=== PATIENT | female | born 1955 | race Caucasian/White ===

== ENCOUNTER → 2017-12-31 09:43 | Outpatient (CLI) | payer BC, SELFPAY ==
[2017-12-31 11:29] LABS: Anion Gap 8 (5-15); BUN 19 mg/dL (7-18); BUN/Creat Ratio 25.6 RATIO (10-20); Calcium,Total 8.9 mg/dL (8.5-10.1); Chloride 106 mmol/L (98-107); Creatinine, Serum 0.74 mg/dL (0.55-1.02); EST Glomerular Filtration Rate 84 mL/min (>60); Est Glom Filt Rate - Afr Amer 102 mL/min (>60); Glucose 118 mg/dL (74-106); Sodium Level 141 mmol/L (136-145)
[2017-12-31 11:35] LABS: Hemoglobin A1c 6.6 % (4.2-6.3)
== END ==
PROVIDERS: Family Provider Family Medicine; PCP Family Medicine; Visit Provider Family Medicine
DX: E11.9 Type 2 diabetes mellitus without complications (principal)
CPT/HCPCS: 36415; 80048; 83036

== ENCOUNTER → 2018-10-09 11:18 | Outpatient (CLI) | payer BC, SELFPAY ==
[2018-10-09 10:38] VITALS: BMI 36.6
[2018-10-09 13:13] LABS: Microalbumin,Random Urine 6.6 mg/L (NO RANGE EST.); Microalbumin:Creatinine Ratio 11.5 mg/g CRE (<30 mg/g CRE)
== END ==
PROVIDERS: Family Provider Family Medicine; PCP Family Medicine; Visit Provider Nurse Practitioner Family
DX: E11.9 Type 2 diabetes mellitus without complications (principal)
CPT/HCPCS: 36415; 82043; 82570; 83036

== ENCOUNTER → 2019-01-22 08:31 | Outpatient (CLI) | payer BC, SELFPAY ==
[2019-01-07 13:36] VITALS: BMI 38.7
[2019-01-22 12:49] LABS: ALB/GLOB Ratio 0.9 RATIO (0.9-2.4); AST(SGOT) 19 U/L (15-37); Alanine Aminotransfer ALT/SGPT 26 U/L (13-56); Albumin, Serum 3.5 g/dL (3.2-5.0); Alkaline Phosphatase 72 U/L (45-117); Anion Gap 7 (5-15); BUN 14 mg/dL (7-18); BUN/Creat Ratio 19.7 RATIO (10-20); Calcium,Total 8.9 mg/dL (8.5-10.1); Chloride 107 mmol/L (98-107); Cholesterol 176 mg/dL (200); Creatinine, Serum 0.71 mg/dL (0.55-1.02); EST Glomerular Filtration Rate 88 mL/min (>60); Est Glom Filt Rate - Afr Amer 107 mL/min (>60); Globulin 3.8 g/dL (2.2-4.2); Glucose 150 mg/dL (74-106); High Density Lipoprotein 57 mg/dL; Potassium 4.2 mmol/L (3.5-5.1); Protein, Total 7.3 g/dL (6.4-8.2); Sodium Level 140 mmol/L (136-145); Triglycerides 139 mg/dL; Very Low Density Lipoprotein 28 mg/dL (5-40)
== END ==
PROVIDERS: Family Provider Family Medicine; PCP Family Medicine; Visit Provider Family Medicine
DX: E11.9 Type 2 diabetes mellitus without complications (principal)
CPT/HCPCS: 36415; 80053; 80061

== ENCOUNTER 2019-08-02 23:39 | Emergency (ER) | payer BC, SELFPAY ==
[2019-07-07 14:03] VITALS: BMI 39.4
[2019-08-02 23:40] VITALS: BP 175/97; PULSE 100; RESP 16; TEMP 36.8; O2SAT 97; BMI 37.4
--- NOTE | 2019-08-02 23:45 | ED.RN ---
NO OLD EKGS IN MUSE
--- NOTE | 2019-08-03 00:07 | EKG12_ITS ---
Test Reason : PALPITTIONS Blood Pressure : / mmHG Vent. Rate : 092 BPM Atrial Rate : 092 BPM P-R Int : 152 ms QRS Dur : 092 ms QT Int : 374 ms P-R-T Axes : 042 006 044 degrees QTc Int : 462 ms Sinus rhythm with occasional Premature ventricular complexes Nonspecific ST and T wave abnormality Abnormal ECG Confirmed by TED MARTINEZ, TONYA ([id number]), editor city DM [place]FTON ([id number]) on 08/06/2019 8:50:11 AM Referred By: BB Confirmed By:TONYA JEAN MD
[2019-08-03 00:14] LABS: Absolute Lymphocyte Count 3.86 X10^3/uL (0.83-4.51); Absolute Neutrophil Count 3.4 X10^3/uL (2.0-7.7); Basophil# 0.07 X10^3/uL; Basophil% 0.9 % (0-1); Eosinophil# 0.31 X10^3/uL; Eosinophils% 3.8 % (0-5); Hematocrit 39.6 % (37-47); Hemoglobin 13.1 g/dL (12.0-15.0); Lymphocyte # 3.86 X10^3/ul (4.0); Lymphocyte % 47.5 % (19-41); Mean Corp Hgb Conc 33.1 g/dL (32-36); Mean Corpuscular Hgb 29.6 pg (27.0-32.0); Mean Corpuscular Volume 89.6 fL (81-99); Mean Platelet Vol. 10.1 fl (6.2-12.0); Monocyte# 0.52 X10^3/uL; Monocyte% 6.4 % (0-10); NRBC Flagged by Analyzer 0 % (0-5); Neutrophil # 3.36 X10^3/uL (2.7-7.7); Neutrophil % 41.3 % (47-70); Platelet Count 233 K/mm3 (150-450); RBC Distribution Width SD 39.3 fl (35.1-43.9); Red Blood Count 4.42 M/mm3 (4.2-5.4); White Blood Count 8.1 K/mm3 (4.4-11.0)
--- NOTE | 2019-08-03 00:39 | ED.VIS.GEN ---
History of Present Illness Chief Complaint: Palpitations Informant: Patient Onset: Hours - 1 hour prior to arrival Context: Sudden Onset - Woke her up from sleep Timing: Continuous - And gradually resolved, thinks it lasted almost an hour Quality: Racing and beating hard Location: chest Current Severity: Gone Maximum Severity: Severe Worsened by: nothing Relieved by: nothing in particular Associated Symptoms: lightheadedness Narrative: Patient had no associated chest discomfort or shortness of breath. She has no recent illnesses. She started using CBD oils for some pains in her right lower and right upper extremities, and about 3 hours prior to the onset of symptoms, she used them on her tongue for the third time ever. Other than that, no [id number]-[id number] medications or changes in prescriptions recently. She has been compliant with her prescriptions. She does not drink any caffeine or take any other stimulants. - Past Medical History (1) Hypertension Status: Chronic (2) Diabetes Status: Chronic Past Medical History - Allergies and Home Meds Allergies/Adverse Reactions: Allergies No Known Allergies Allergy (Verified 07/07/19 14:02) Primary Care Physician: Roni Kendrick DO [Primary Care Provider] - Lives: Spouse/ Significant Other Smoking Status: Never smoker Drugs: None Review of Systems General: Denies: Chills, Fever, Sweats Eyes: Denies: Visual changes - bilaterally, Diplopia ENT: Denies: Rhinorrhea, Sore throat Cardiovascular: Reports: Palpitations, Heart racing. Denies: Chest pain Respiratory: Denies: Dyspnea, Cough, Dyspnea on exertion Gastrointestinal: Denies: Abdominal pain, Nausea, Vomiting, Diarrhea, Melena, Hematochezia Genitourinary: Denies: Dysuria, Hematuria, Frequency Musculoskeletal: Denies: Back pain, Extremity Pain Skin: Denies: Rash, Wounds Neurological: Denies: Headache, Weakness, Numbness Physical Exam Vital Signs/Narrative: Vital Signs Temp Pulse Resp BP Pulse Ox 08/02/19 23:40 98.3 F 100 16 175/97 H 97 Inital Vital Signs reviewed: Yes General: Well nourished, Well developed, No Acute Distress Head: Normocephalic, Atraumatic Eyes: Perrl, EOMI ENT: Moist mucous membranes, No rhinorrhea Neck: Supple, Nontender, No lymphadenopathy, No JVD Cardiovascular: Regular rate, Regular rhythm, No murmurs, Normal S1, Normal S2 Respiratory: No distress, CTA bilaterally, Chest nontender Abdomen: Soft, Nontender, Nondistended, Normal bowel sounds Back: Nontender, Normal Inspection Extremities: Nontender, No edema. Negative for: Calf Tenderness Skin: Normal color, No rash, No Trauma Neurological: Alert, Oriented x3, Cranial nerves II-XII grossly intact, Normal Strength, Normal Sensation, Normal Gait Psychological: Normal affect, Normal Mood Diagnostic/Tx/Re-eval Laboratory Tests 08/03/19 08/03/19 08/03/19 Range/Units 00:46 00:00 00:00 WBC 8.1 (4.4-11.0) K/mm3 RBC 4.42 (4.2-5.4) M/mm3 Hgb 13.1 (12.0-15.0) g/dL Hct 39.6 (37-47) % MCV 89.6 (81-99) fL MCH 29.6 (27.0-32.0) pg MCHC 33.1 (32-36) g/dL RDW Std Deviation 39.3 (35.1-43.9) fl RDW Coeff of Kerri 12.0 (11.6-14.6) % Plt Count 233 (150-450) K/mm3 MPV 10.1 (6.2-12.0) fl Immature Gran % (Auto) 0.100 (0.0-0.9) % Neut % (Auto) 41.3 L (47-70) % Lymph % (Auto) 47.5 H (19-41) % Faulkner % (Auto) 6.4 (0-10) % Eos % (Auto) 3.8 (0-5) % Baso % (Auto) 0.9 (0-1) % Absolute Neuts (auto) 3.4 (2.0-7.7) X10^3/uL Absolute Lymphs (auto) 3.86 (0.83-4.51) X10^3/uL Nucleated RBC % 0 (0-5) % Sodium 141 Cancelled Potassium 3.5 Cancelled Chloride 110 H Cancelled Carbon Dioxide 27.0 Cancelled Anion Gap 4 L Cancelled BUN 15 Cancelled Creatinine 0.83 Cancelled Estim Creat Clear Calc 60.69 Cancelled Est GFR (MDRD) Af Amer 90 Cancelled Est GFR (MDRD) Non-Af 74 Cancelled BUN/Creatinine Ratio 18.1 Cancelled Glucose 172 H Cancelled Calcium 8.5 Cancelled Troponin I < 0.015 Cancelled - Rhythm Strip Rhythm Strip: Sinus Rhythm Rate: 92 Ectopy: PVC(s) - frequent, asymptomatic - EKG Initial EKG Interpretation: Sinus Rhythm, No Acute Injury Pattern, - - PVC Prior: No Prior - Medical Decision Making Patient remained asymptomatic for over 3 hours in the emergency department. Her work-up is unremarkable. Her EKG is normal except for some PVCs which she continues to occasionally have and not feel. I think she is at low risk relatively for adverse myocardial event and is stable for outpatient cardiology follow-up. At this time I would recommend avoiding the CBD oil. She is welcome to return for reevaluation for any recurrent symptoms before she is able to follow-up. An event or Holter monitor may be appropriate for her. I think she can follow-up for that. ED Disposition - Plan for ED Patient: Disposition: Home or Assisted Living Diagnosis: Palpitations Instructions: Palpitations Referrals: Roni Kendrick DO [Primary Care Provider] - Neal Guerin MD [STAFF PHYSICIAN] - As soon as possible (Call for appointment to be seen with any of the available physicians)
[2019-08-03 01:17] LABS: Anion Gap 4 (5-15); BUN 15 mg/dL (7-18); BUN/Creat Ratio 18.1 RATIO (10-20); Calcium,Total 8.5 mg/dL (8.5-10.1); Chloride 110 mmol/L (98-107); Creatinine, Serum 0.83 mg/dL (0.55-1.02); EST Glomerular Filtration Rate 74 mL/min (>60); Est Glom Filt Rate - Afr Amer 90 mL/min (>60); Estimated Creatinine Clearance 60.69 ml/min; Glucose 172 mg/dL (74-106); Potassium 3.5 mmol/L (3.5-5.1); Sodium Level 141 mmol/L (136-145)
[2019-08-03 01:39] VITALS: BP 158/76; PULSE 56; RESP 16; O2SAT 95
[2019-08-03 03:09] VITALS: BP 140/59; PULSE 64; RESP 16; O2SAT 98
== END 2019-08-03 03:10 | disposition home or self-care (01) ==
PROVIDERS: Emergency Provider Emergency Medicine; Family Provider Family Medicine; PCP Family Medicine
DX: R00.2 Palpitations (principal); I10 Essential (primary) hypertension; E11.9 Type 2 diabetes mellitus without complications; Z79.84 Long term (current) use of oral hypoglycemic drugs; Z79.82 Long term (current) use of aspirin; Z79.899 Other long term (current) drug therapy
CPT/HCPCS: 36415; 80048; 84484; 85025; 93005; 99284; A4216

== ENCOUNTER → 2020-03-10 14:36 | Outpatient (CLI) | payer BC, SELFPAY ==
[2020-03-09 15:37] VITALS: BMI 37.4
--- NOTE | 2020-03-10 14:45 | RAD_ITS ---
STUDY: X-RAY - LEFT KNEE REASON FOR EXAM: Female, 64 years old. PAIN TECHNIQUE: 4 view(s) of the knee. COMPARISON: None. FINDINGS: Normal visualized distal femur. Normal visualized proximal tibia and fibula. Normal proximal tibiofibular articulation. Normal medial femorotibial compartment. Normal lateral femorotibial compartment. Normal patellofemoral articulation. The soft tissue structures are unremarkable. RAD/Knee 4 or More Views IMPRESSION: Normal x-ray examination of the knee. Electronically Signed: Gene Turk MD at 20:34 EDT , Service support ,
== END ==
PROVIDERS: PCP Family Medicine; Referring Provider Nurse Practitioner Family; Visit Provider Nurse Practitioner Family
DX: M25.562 Pain in left knee (principal)
CPT/HCPCS: 73564

== ENCOUNTER → 2020-04-15 15:25 | Outpatient (CLI) | payer BC, SELFPAY ==
[2020-04-06 08:08] VITALS: BMI 37.4
--- NOTE | 2020-04-15 15:26 | MRI_ITS ---
STUDY: MRI LEFT KNEE REASON FOR EXAM: Female, 64 years old. Knee pain TECHNIQUE: Standardized fat and water weighted pulse sequences were obtained in all 3 orthogonal planes. COMPARISON: 03/10/2020 FINDINGS: Complex tear of the posterior horn the medial meniscus with a 1 cm trizonal radial tear of the root of the posterior horn and 1 cm trizonal flap tear of the medial aspect of the posterior horn extending to the inferior surface. There is diffuse, greater than 50% thickness articular cartilage loss of the medial femorotibial compartment. Normal medial femoral condyle and tibial plateau. Normal medial collateral ligamentous complex (MCL). Normal distal semimembranosus, gracilis and semitendinosus tendons. Normal lateral meniscus. Normal hyaline cartilage of the lateral femorotibial compartment. Mild stress reaction of the medial aspect of the lateral femoral condyle near the insertion of the anterior cruciate ligament. Normal proximal tibiofibular articulation. Normal lateral collateral (fibular) ligament. Normal popliteus tendon. Normal biceps femoris tendon. Normal anterior cruciate ligament (ACL). Normal posterior cruciate ligament (PCL). Shallow trochlear groove with lateral subluxation of patella and edema superolateral Hoffa''s fat pad consistent with patellofemoral maltracking. Normal hyaline cartilage of the patellofemoral compartment. Normal medial and lateral patellar retinaculum. Normal quadriceps tendon. Normal patellar tendon. Normal Hoffa''s fat pad. There is a moderate volume joint effusion. There is a Doyle''s cyst. The soft tissues are unremarkable. The otherwise visualized osseous structures are unremarkable. MRI/Lower Ext Joint Only (Routine) IMPRESSION: 1. Complex tear of the posterior horn the medial meniscus with moderate chondromalacia. 2. Mild stress reaction of the medial aspect lateral tibial plateau near the insertion of the anterior cruciate ligament. The anterior cruciate ligament is intact. 3. Patellofemoral maltracking. 4. Moderate joint effusion with a tiny Doyle''s cyst. Electronically Signed: Tereso Rodriguez MD at 16:54 EDT Tel , Service support ,
== END ==
PROVIDERS: PCP Family Medicine; Referring Provider Orthopaedic Surgery; Visit Provider Orthopaedic Surgery
DX: M23.307 Other meniscus derangements, unspecified meniscus, left knee (principal)
CPT/HCPCS: 73721

== ENCOUNTER 2020-05-10 08:11 | Day surgery (SDC) | payer BC, SELFPAY ==
[2020-04-22 08:07] VITALS: BMI 37.4
--- NOTE | 2020-04-22 11:37 | HP_ITS ---
Intake Intake Visit Reasons: LEFT KNEE Chief Complaint: KNEE PAIN Accompanied by: self Is patient in pain?: Yes Allergies No Known Allergies Allergy (Verified 04/06/20 14:51) Medications aspirin 81 mg tablet,delayed release See Rx Instructions .ROUTE .COMPLEX #30 tab 11/04/19 [Rx Confirmed 04/22/20] lisinopril 10 mg tablet See Rx Instructions .ROUTE .COMPLEX #30 tab 11/05/19 [Rx Confirmed 04/22/20] metformin 500 mg tablet See Rx Instructions .ROUTE .COMPLEX #180 tab 03/09/20 [Rx Confirmed 04/22/20] [facility] Social History (Updated 04/25/20 @ 11:[address] Zak Davidson, ) Smoking Status: Never smoker alcohol intake: never substance use type: does not use what type of physical activity do you participate in: other details: Active at job HPI LEFT KNEE: Surgical H&P: Yes Details: Parts of this documentation were recorded by a scribe, this documentation accurately reflects the service provided and the decisions made by me, Dr. Zak Davidson DO 04/22/20 0802. SHERLY JAIN is a 64 year old F here today for F/U on left knee pain after having MRI fo the left knee completed. Contineus to have left generalized knee pain. Does have painful popping and clicking. Denies numbness, tingling or other associated symptoms. Denies any radiating leg pain. Her knee has given out on her. Denies any hx of blood clots. ROS Musc Reports system reviewed and no additional complaints, except as docu, Reports abnormal walking, Reports joint pain, Reports joint swelling, Denies muscle cramps, Reports muscle weakness, Denies numbness, Reports radiating pain into limb, Reports stiffness, Denies tingling Skin/Breast Reports system reviewed and no additional complaints, except as docu, Denies dry skin, Denies redness, Denies lesions, Denies non-healing lesions, Denies itching, Denies rash, Denies skin ulcer, Denies sores, Denies wounds Neuro Yes abnormal walking, No numbness, No tingling Ortho Exam Left Knee Skin/Wound: No wound care, No ecchymosis, No erythema KNEE: No joint effusion. Left Knee Skin/Wound: Yes CDI, No ecchymosis, No erythema, No swelling Knee ROM: Yes ROM-Extension -20 to 0, Yes ROM-Flexion 0-140 (110) Examination: No med jt line tenderness, Yes Lat jt line tenderness, Yes Crepitus, Yes Karen's Test (click with lateral), No TTP Pes Anserine, No ITB tenderness Stability: NML: Anterior Drawer, NML: Posterior Drawer, NML: Valgus 30, NML: Varus 30, 2+: Pollo Patella Translation: 1 Patella Grind: No KNEE: no patellar instability antalgic gait Supplemental Info 04/15/2020 MRI left knee: Complex tear posterior horn medial meniscus'sStress reaction medial aspect of lateral tibial plateau patellofemoral maltracking moderate joint effusion 03/10/2020 x-ray left knee preserved joint space no significant sclerosis no acute findings there is mild spurring of the tibial eminence Assessment & Plan Problems 1. Acute medial meniscus tear of left knee, subsequent encounter S83.242D 2. Bone bruise T14.8XXA Plan Patient educated that she has a posterior medial meniscus tear. Patient educated that the treatment options are do nothing or PT or surgical intervention with a partial medial meniscectomy vs meniscus repair. We will plan the meniscectomy of the left knee. Reviewed the pre-operative plans with the patient. Risks and benefits of the procedure were fully explained, including but not limited to infection, neurovascular injury, continued pain, arthritis, stiffness, need for further surgery, re-injury, DVT, PE, general risks of anesthesia, and loss of limb or life. The patient understands all the risks and does wish to proceed with written consent. Educated that she may be sore and swollen for about 4 weeks post op. She will be able to WBAT. She also has mal patellar tracking which can be resolved by strengthening of the VMO and quads. She may need PT after the surgery for the maltracking. Follow up 2 weeks post op or sooner if pain, swelling, numbness or associated symptoms, or concerns develop. All questions answered. Patient in agreement of plan. Coding Level of Care Code Off vis,est,level 3 Diagnoses Acute medial meniscus tear of left knee, subsequent encounter S83.242D ??Encounter type: subsequent encounter Bone bruise T14.8XXA 04/25/20 1136 <Electronically signed by Zak Borrus o DO> Date _ Zak Davidson DO
--- NOTE | 2020-05-09 15:14 | HP.PCM_ITS ---
History and Physical Date of Admission: 05/10/20 Intake Intake Visit Reasons: LEFT KNEE Chief Complaint: KNEE PAIN Accompanied by: self Is patient in pain?: Yes Allergies No Known Allergies Allergy (Verified 04/06/20 14:51) Medications aspirin 81 mg tablet,delayed release See Rx Instructions .ROUTE .COMPLEX #30 tab 11/04/19 [Rx Confirmed 04/22/20] lisinopril 10 mg tablet See Rx Instructions .ROUTE .COMPLEX #30 tab 11/05/19 [Rx Confirmed 04/22/20] metformin 500 mg tablet See Rx Instructions .ROUTE .COMPLEX #180 tab 03/09/20 [Rx Confirmed 04/22/20] PFSH Social History (Updated 04/25/20 @ 11:[address] Zak Davidson DO) Smoking Status: Never smoker alcohol intake: never substance use type: does not use what type of physical activity do you participate in: other details: Active at job HPI LEFT KNEE: Surgical H&P: Yes Details: Parts of this documentation were recorded by a scribe, this documentation accurately reflects the service provided and the decisions made by me, Dr. Zak Davidson DO 04/22/20 0802. SHERLY JAIN is a 64 year old F here today for F/U on left knee pain after having MRI fo the left knee completed. Contineus to have left generalized knee pain. Does have painful popping and clicking. Denies numbness, tingling or other associated symptoms. Denies any radiating leg pain. Her knee has given out on her. Denies any hx of blood clots. ROS Musc Reports system reviewed and no additional complaints, except as docu, Reports abnormal walking, Reports joint pain, Reports joint swelling, Denies muscle cramps, Reports muscle weakness, Denies numbness, Reports radiating pain into limb, Reports stiffness, Denies tingling Skin/Breast Reports system reviewed and no additional complaints, except as docu, Denies dry skin, Denies redness, Denies lesions, Denies non-healing lesions, Denies itching, Denies rash, Denies skin ulcer, Denies sores, Denies wounds Neuro Yes abnormal walking, No numbness, No tingling Ortho Exam Left Knee Skin/Wound: No wound care, No ecchymosis, No erythema KNEE: No joint effusion. Left Knee Skin/Wound: Yes CDI, No ecchymosis, No erythema, No swelling Knee ROM: Yes ROM-Extension -20 to 0, Yes ROM-Flexion 0-140 (110) Examination: No med jt line tenderness, Yes Lat jt line tenderness, Yes Crepitus, Yes Karen's Test (click with lateral), No TTP Pes Anserine, No ITB tenderness Stability: NML: Anterior Drawer, NML: Posterior Drawer, NML: Valgus 30, NML: Va leonardo 30, 2+: Pollo Patella Translation: 1 Patella Grind: No KNEE: no patellar instability antalgic gait Supplemental Info 04/15/2020 MRI left knee: Complex tear posterior horn medial meniscus'sStress reaction medial aspect of lateral tibial plateau patellofemoral maltracking moderate joint effusion 03/10/2020 x-ray left knee preserved joint space no significant sclerosis no acute findings there is mild spurring of the tibial eminence Assessment & Plan Problems 1. Acute medial meniscus tear of left knee, subsequent encounter S83.242D 2. Bone bruise T14.8XXA Plan Patient educated that she has a posterior medial meniscus tear. Patient educated that the treatment options are do nothing or PT or surgical intervention with a partial medial meniscectomy vs meniscus repair. We will plan the meniscectomy of the left knee. Reviewed the pre-operative plans with the patient. Risks and benefits of the procedure were fully explained, including but not limited to infection, neurovascular injury, continued pain, arthritis, stiffness, need for further surgery, re-injury, DVT, PE, general risks of anesthesia, and loss of limb or life. The patient understands all the risks and does wish to proceed with written consent. Educated that she may be sore and swollen for about 4 weeks post op. She will be able to WBAT. She also has mal patellar tracking which can be resolved by strengthening of the VMO and quads. She may need PT after the surgery for the maltracking. Follow up 2 weeks post op or sooner if pain, swelling, numbness or associated symptoms, or concerns develop. All questions answered. Patient in agreement of plan. Coding Level of Care Code Off vis,est,level 3 Diagnoses Acute medial meniscus tear of left knee, subsequent encounter S83.242D ??Encounter type: subsequent encounter Bone bruise T14.8XXA I have re-examined the patient. There are no clinical changes since date of exam Procedure Criteria Procedure Type: Elective COVID Risk Discussion: The surgeon/proceduralist and patient have discussed in detail the risk of exposure to and/or potential harm posed by the COVID-19 virus with having a surgery/procedure at this time versus the risk of delaying the surgery/procedure. It is not possible to know either the risk of delaying the surgery or procedure or chance of getting an infection with perfect accuracy, but a joint decision was made between the patient and the surgeon/proceduralist to proceed at this time with the scheduled surgery/procedure as indicated on the consent form.
[2020-05-10] VITALS (8 sets, daily range): BP systolic 120–165; BP diastolic 49–82; PULSE 52–68; RESP 16; TEMP 36.2–37.2; O2SAT 95–100; BMI 36.8
[2020-05-10] MEDS: Lactated Ringers 1,000 ML 100 ML IV (08:54)
[2020-05-10] MEDS: Cefazolin 2 GM in 0.9% Normal Saline 100 ML IV (10:05)
[2020-05-10] MEDS: Bupiv/Epi 0.5% Mpf 30 ML Vial (10:26)
[2020-05-10] MEDS: Epinephrine (1 mg/ml) 1 MG/ML VIAL (10:26)
[2020-05-10] MEDS: MethylPREDNISolone Acetate 80 MG/ML Vial (10:40)
[2020-05-10] MEDS: morphine PF (epidural) 5 MG/10 ML Vial (10:41)
[2020-05-10] MEDS: Bupivacaine Mpf 0.5% 30 ML VIAL (10:41)
--- NOTE | 2020-05-10 10:47 | PCM.DC.ORTHO ---
Discharge Diet: No Restrictions May resume sexual activity in: No Restrictions Weight Bearing Status: Weight bearing as tolerated Call your doctor if you observe: Shortness of breath, Chest pain Additional Instructions: Ice and elevate next 72 hours .keep dressing on clean and dry for 48 hours then may remove begin showering daily but do not submerge in tub or pool. After shower may apply Band-Aids . Encourage knee range of motion weightbearing as tolerated, use crutches until confident in knee then may discontinue. No strenuous activity. When not ambulating keep iced and elevated next 72 hours. Call with any questions or concerns. Allergies/Adverse Reactions: Allergies No Known Allergies Allergy (Verified 05/02/20 10:33) Medications to take at Discharge aspirin 81 mg tablet,delayed release See Rx Instructions .ROUTE .COMPLEX #30 tab 11/04/19 Lisinopril [Prinivil] 10 mg PO QHS 05/02/20 Metformin HCl [Glucophage] 500 mg PO QHS 05/02/20 Oxycodone [Oxyir] 5 mg PO Q4H PRN PRN #30 tablet 05/10/20 The following prescriptions were given: Oxycodone [Oxyir] 5 mg PO Q4H PRN PRN #30 tablet PRN Reason: Pain Score 6-10/10 Transmission Status: Sent to [facility] Primary Care Physician: Roni Kendrick DO [Primary Care Provider] - Test Results: Test results from this visit will be discussed in further detail at your follow-up appointment, if applicable. Please Follow Up With: Zak Davidson DO - 2 weeks
--- NOTE | 2020-05-10 10:48 | OP.PCM_ITS ---
Report of Operation Date of Procedure: 05/10/20 Description of Surgical Findings:: Preop diagnosis: Left knee medial meniscus tear complex Postoperative diagnosis: Same, grade 2 through 3 cartilage wear medial femoral condyle and trochlea and patella Procedure: Left knee arthroscopic partial medial meniscectomy Anesthesia: General Estimated blood loss: 5 mL Tourniquet time: 19 minutes 300 mmHg Complications: none Indication for procedure: 64-year-old female patient with continued knee pain did have MRI evidence of posterior horn medial meniscus tear the patient did wish to proceed with an elective arthroscopic surgery to attempt to alleviate the symptoms. Risk benefits and alternatives of the procedure were reviewed including risk of bleeding infection nerve artery tissue damage need for further surgery continued pain and expected postoperative course. Procedure: The patient was met in the preoperative holding area. The operative extremity was identified by both patient and physician and family and marked. Patient was brought back to the operating room on a wheeled cart and transferred to the operating table in the supine position. Anesthesia was started. A well- padded tourniquet was placed on the operative extremity. A lower extremity leg palacios was secured to the operative extremity. The contralateral extremity was well-padded and the end of the bed was flexed to 90 degrees. The patient was prepped and draped in the usual sterile fashion. A timeout was called to ensure the proper patient, procedure, and extremity were being contemplated. 0.5% Marcaine with epinephrine was injected into the planned incisional areas under the skin only. An Esmarch was used to exsanguinate the extremity and the tourniquet was inflated. An 11 blade scalpel was used to make a stab incision in the anterior lateral portal. The arthroscope was inserted into the intercondylar notch and inflow and outflow tubes were attached. Arthroscopic visualization began. The medial compartment was entered. An 18-gauge spinal needle was used to establish the placement for anterior medial portal. An 11 blade scalpel was used to make a stab incision. Blunt probe was inserted followed by a meniscal probe. There is noted to be a radial tear of the posterior horn with use of arthroscopic biting instruments partial medial meniscectomy was performed the root was still intact with posterior fibers intact the ACL was found to be intact. The lateral compartment was entered was free of meniscal or cartilage pathology The arthroscope was switched to the medial portal to complete the procedure. The medial and lateral gutters were inspected and were free of loose bodies. The patellofemoral joint was inspected and was free of cartilage pathology. There was grade 3 cartilage wear of the trochlea and undersurface of the patellar the knee was thoroughly irrigated and drained. An intra-articular injection with 5 cc 0.5% Marcaine plain 2.5 mg of morphine and 40 mg of Depo-Medrol was injected intra-articularly. The arthroscope was removed the portals were closed with 3-0 nylon arthroscopic stitches. Followed by Xeroform 4 x 4's ABDs web roll and an Timmy wrap. The tourniquet was let down and the drapes were removed. All counts were correct. The patient was brought back to the PACU in stable condition.
[2020-05-10 11:16] LABS: Bedside Glucose 171 mg/dL (70-110)
[2020-05-10 11:46] LABS: Bedside Glucose 192 mg/dL (70-110)
[2020-05-10] MEDS: oxyCODONE 5 MG Tablet PO (12:13)
== END 2020-05-10 13:35 | disposition home or self-care (01) ==
LOC: SDC 08:13 → AC 08:13
PROVIDERS: Anesthesiology; PCP Family Medicine; Referring Provider Orthopaedic Surgery; Visit Provider Orthopaedic Surgery
PROC: (CPT 29870; principal; 2020-05-10 09:40)
DX: S83.242A Other tear of medial meniscus, current injury, left knee, initial encounter (principal); E11.9 Type 2 diabetes mellitus without complications; X58.XXXA Exposure to other specified factors, initial encounter; Z79.899 Other long term (current) drug therapy; Z79.84 Long term (current) use of oral hypoglycemic drugs; Z79.82 Long term (current) use of aspirin; Z11.59 Encounter for screening for other viral diseases; T14.8XXA Other injury of unspecified body region, initial encounter; I10 Essential (primary) hypertension
CPT/HCPCS: 01400; 29881; 82962; 87635; J7120; J2405; U0003

== ENCOUNTER → 2020-07-21 15:49 | Outpatient (CLI) | payer BC, SELFPAY ==
[2020-07-21 15:26] VITALS: BMI 36.7
[2020-07-21 17:57] LABS: Microalbumin,Random Urine 13.1 mg/L (NO RANGE EST.); Microalbumin:Creatinine Ratio 7.2 mg/g CRE (<30 mg/g CRE)
[2020-07-21 18:17] LABS: ALB/GLOB Ratio 1.1 RATIO (0.9-2.4); AST(SGOT) 16 U/L (15-37); Alanine Aminotransfer ALT/SGPT 25 U/L (13-56); Albumin, Serum 3.8 g/dL (3.2-5.0); Alkaline Phosphatase 76 U/L (45-117); Anion Gap 9 (5-15); BUN 15 mg/dL (7-18); BUN/Creat Ratio 17.7 RATIO (10-20); Calcium,Total 8.9 mg/dL (8.5-10.1); Chloride 108 mmol/L (98-107); Cholesterol 176 mg/dL (200); Creatinine, Serum 0.85 mg/dL (0.55-1.02); EST Glomerular Filtration Rate 72 mL/min (>60); Est Glom Filt Rate - Afr Amer 87 mL/min (>60); Globulin 3.5 g/dL (2.2-4.2); Glucose 157 mg/dL (74-106); High Density Lipoprotein 57 mg/dL; Potassium 3.6 mmol/L (3.5-5.1); Protein, Total 7.3 g/dL (6.4-8.2); Sodium Level 140 mmol/L (136-145); Triglycerides 151 mg/dL; Very Low Density Lipoprotein 30 mg/dL (5-40)
== END ==
PROVIDERS: PCP Family Medicine; Referring Provider Family Medicine; Visit Provider Family Medicine
DX: E11.9 Type 2 diabetes mellitus without complications (principal); I10 Essential (primary) hypertension
CPT/HCPCS: 36415; 80053; 80061; 82043; 82570

== ENCOUNTER 2021-08-16 13:31 | Outpatient (CLI) | payer BC, MEDICARE, SELFPAY ==
[2021-08-16 15:57] LABS: Anion Gap 7 (5-15); BUN 13 mg/dL (7-18); BUN/Creat Ratio 18.8 RATIO (10-20); Calcium,Total 9.4 mg/dL (8.5-10.1); Chloride 107 mmol/L (98-107); Creatinine, Serum 0.69 mg/dL (0.55-1.02); EST Glomerular Filtration Rate 90 mL/min (>60); Est Glom Filt Rate - Afr Amer 109 mL/min (>60); Glucose 132 mg/dL (74-106); Potassium 3.8 mmol/L (3.5-5.1); Sodium Level 139 mmol/L (136-145)
== END 2021-08-16 23:59 | disposition short-term general hospital (02) ==
LOC: BIMLAB 13:32
PROVIDERS: PCP Family Medicine; Visit Provider Family Medicine
DX: I10 Essential (primary) hypertension (principal)
CPT/HCPCS: 36415; 80048

== ENCOUNTER → 2022-04-05 | Outpatient (CLI) | payer MEDICARE, SELFPAY ==
--- NOTE | 2022-04-05 14:14 | BI_ITS ---
MAMMOGRAPHY - BILATERAL SCREENING REASON FOR EXAM: Female, 66 years old. Routine annual screening examination. PERTINENT HISTORY: Non-contributory. TECHNIQUE: Digital bilateral breast gloria (3D mammographic acquisition) in the CC and MLO projections. 2-D mediolateral oblique (MLO) and craniocaudad (CC) views of both breasts were obtained. CAD: Full Field Digital Mammography with Computer Added Detection was performed. COMPARISON: Comparison is made with prior abdomen examination dated 12/11/2016. FINDINGS: Breast Composition: There are scattered areas of fibroglandular density. There are no dominant masses or suspicious calcifications. No other significant abnormalities are identified. There has been no significant change since the prior study. BI/SCRN MAMM (CAD)W/GLORIA BILAT IMPRESSION: Stable bilateral screening mammogram. Yearly follow-up mammogram recommended. (A) ASSESSMENT CATEGORY: BIRADS Category 1: Negative. A letter regarding these results will be sent to the patient by the facility within 30 days. Approximately 10% of breast cancers are not detected by mammography. A normal mammogram should not delay biopsy of a clinically suspicious abnormality. [id number] Electronically Signed: Valentin Presley MD at 15:10 EDT ,
--- NOTE | 2022-04-05 14:15 | BD_ITS ---
STUDY: DUAL ENERGY X-RAY ABSORPTIOMETRY / DXA REASON FOR EXAM: Female, 66 years old. Screening, postmenopausal TECHNIQUE: Bone Mineral Density (BMD) measurements of lumbar spine and bilateral hips were obtained. COMPARISON: None. FINDINGS: Lumbar Spine (L1-L4): g/cm2 (0.945) / T-score (-0.9) / Z-score (0.9) Findings are suggestive of normal bone density with a low fracture risk. Left Femur Total: g/cm2 (0.898) / T-score (-0.4) / Z-score (0.9) Left Femoral Neck: g/cm2 (0.722) / T-score (-1.1) / Z-score (0.4) Right Femur Total: g/cm2 (0.913) / T-score (-0.2) / Z-score (1.0) Right Femoral Neck: g/cm2 (0.779) / T-score (-0.6) / Z-score (0.9) BD/Dexa Bone Density Study IMPRESSION: The patient is considered normal as outlined below according to World [employer] Organization (WHO) criteria with a low fracture risk. Reference Information: The T-score is the number of standard deviations above or below the standard which is normal for young adults at their peak bone mineral density. The World Health Organization (WHO) interprets the T-scores as follows: Above -1 Normal bone density Between -1 and -2.5 Osteopenia Equal to / or below -2.5 Osteoporosis As a practical clinical guideline, osteopenia may be graded as follows: Mild -1 through -1.5 Moderate -1.6 through -2.0 Severe -2.1 through -2.4 The Z-score is the number of standard deviations above or below age-matched controls. A Z-score of less than -1.5 would be considered abnormal. References: 1. NIH Osteoporosis and Related Bone Diseases www osteo.org 2. International Society for Clinical Densitometry www iscd.org 3. National Osteoporosis Foundation www nof.org Electronically Signed: Valentin Presley MD at 15:31 EDT ,
== END | disposition home or self-care (01) ==
LOC: OPBD 14:12
PROVIDERS: PCP Family Medicine; Visit Provider Physician Assistant
DX: Z78.0 Asymptomatic menopausal state (principal); Z12.31 Encounter for screening mammogram for malignant neoplasm of breast
CPT/HCPCS: 77063; 77067; 77080

== ENCOUNTER → 2022-09-26 | Outpatient (CLI) | payer MEDICARE, SELFPAY ==
[2022-09-26 17:31] LABS: ALB/GLOB Ratio 1.1 RATIO (0.9-2.4); AST(SGOT) 26 U/L (15-37); Alanine Aminotransfer ALT/SGPT 30 U/L (13-56); Albumin, Serum 3.9 g/dL (3.2-5.0); Alkaline Phosphatase 75 U/L (45-117); Anion Gap 9 (5-15); BUN 13 mg/dL (7-18); BUN/Creat Ratio 16.5 RATIO (10-20); Calcium,Total 9.5 mg/dL (8.5-10.1); Chloride 107 mmol/L (98-107); Cholesterol 178 mg/dL (200); Creatinine, Serum 0.79 mg/dL (0.55-1.02); EST Glomerular Filtration Rate 78 mL/min (>60); Est Glom Filt Rate - Afr Amer 94 mL/min (>60); Globulin 3.4 g/dL (2.2-4.2); Glucose 166 mg/dL (74-106); High Density Lipoprotein 57 mg/dL; Potassium 4.2 mmol/L (3.5-5.1); Protein, Total 7.3 g/dL (6.4-8.2); Sodium Level 142 mmol/L (136-145); Triglycerides 246 mg/dL; Very Low Density Lipoprotein 49 mg/dL (5-40)
== END | disposition home or self-care (01) ==
LOC: BIMLAB 14:36
PROVIDERS: PCP Family Medicine; Referring Provider Family Medicine; Visit Provider Family Medicine
DX: I10 Essential (primary) hypertension (principal); E11.9 Type 2 diabetes mellitus without complications
CPT/HCPCS: 36415; 80053; 80061

== ENCOUNTER → 2024-01-21 | Outpatient (CLI) | payer MEDICARE, SELFPAY ==
[2024-01-21 17:33] LABS: AST(SGOT) 19 U/L (15-37); Alanine Aminotransfer ALT/SGPT 24 U/L (13-56); Albumin, Serum 3.8 g/dL (3.2-5.0); Alkaline Phosphatase 67 U/L (45-117); Anion Gap 9 (5-15); BUN 19 mg/dL (7-18); BUN/Creat Ratio 24.1 RATIO (10-20); Calcium,Total 9.4 mg/dL (8.5-10.1); Chloride 109 mmol/L (98-107); Cholesterol 195 mg/dL (200); Creatinine, Serum 0.79 mg/dL (0.55-1.02); EST Glomerular Filtration Rate 77 mL/min (>60); Est Glom Filt Rate - Afr Amer 93 mL/min (>60); Globulin 3.7 g/dL (2.2-4.2); Glucose 128 mg/dL (74-106); High Density Lipoprotein 54 mg/dL; Potassium 3.9 mmol/L (3.5-5.1); Protein, Total 7.5 g/dL (6.4-8.2); Sodium Level 138 mmol/L (136-145); Triglycerides 186 mg/dL; Very Low Density Lipoprotein 37 mg/dL (5-40)
== END | disposition home or self-care (01) ==
LOC: BIMLAB 15:48
PROVIDERS: PCP Family Medicine; Visit Provider Family Medicine
DX: E11.9 Type 2 diabetes mellitus without complications (principal)
CPT/HCPCS: 36415; 80053; 80061

== ENCOUNTER → 2024-05-21 | Outpatient (CLI) | payer MEDICARE, SELFPAY | END | disposition home or self-care (01) | PROVIDERS: PCP Family Medicine; Visit Provider Physician Assistant Surgical | DX: N39.0 Urinary tract infection, site not specified (principal) | CPT/HCPCS: 87077; 87086; 87088; 87186 ==

== ENCOUNTER → 2024-08-04 | Outpatient (CLI) | payer MEDICARE, SELFPAY | END | disposition home or self-care (01) | LOC: LABSPEC 09:49 | PROVIDERS: PCP Family Medicine; Referring Provider Physician Assistant Surgical; Visit Provider Physician Assistant Surgical | DX: R30.0 Dysuria (principal) | CPT/HCPCS: 87077; 87086; 87088; 87186 ==

== ENCOUNTER → 2024-12-01 | Outpatient (CLI) | payer MEDICARE, SELFPAY ==
[2024-12-01 17:36] LABS: ALB/GLOB Ratio 1.5 RATIO (0.9-2.4); AST(SGOT) 23 U/L (<=31); Alanine Aminotransfer ALT/SGPT 20 U/L (<=34); Albumin, Serum 4.4 g/dL (3.4-4.8); Alkaline Phosphatase 69 U/L (35-104); Anion Gap 11 (5-15); BUN 15 mg/dL (4-19); BUN/Creat Ratio 12.4 RATIO (10-20); Calcium,Total 9.4 mg/dL (7.6-11.0); Carbon Dioxide 22.8 mmol/L (21.0-32.0); Chloride 104 mmol/L (98-108); Cholesterol 199 mg/dL (<=200); Creatinine, Serum 1.21 mg/dL (0.70-1.20); EST Glomerular Filtration Rate 49 (>60); Globulin 2.9 g/dL (2.2-4.2); Glucose 135 mg/dL (70-99); High Density Lipoprotein 62 mg/dL; Low Density Lipoprotein Calc. 93 mg/dL; Potassium 4.1 mmol/L (3.3-5.1); Protein, Total 7.3 g/dL (5.9-8.4); Sodium Level 138 mmol/L (133-145); Total Bilirubin 0.34 mg/dL (0.00-1.30); Triglycerides 216 mg/dL; Very Low Density Lipoprotein 43 mg/dL (5-40); cholesterol:hdl ratio screen 3.19
== END | disposition home or self-care (01) ==
LOC: BIMLAB 15:07
PROVIDERS: PCP Family Medicine; Referring Provider Family Medicine; Visit Provider Family Medicine
DX: E11.9 Type 2 diabetes mellitus without complications (principal)
CPT/HCPCS: 36415; 80053; 80061